=== PATIENT | male | born 1945 | race Caucasian/White ===

== ENCOUNTER 2016-07-18 19:26 | Observation (INO) | payer OTHER ==
--- NOTE | ~2016-07-18 | HP ---
History And Physical [facility] [address] [facility] [place]. [address] NAME: THADDEUS MILTON : 49 STATUS : DIS Beba PAT#: [id number] AGE: 71 ADM/REG DATE : 07/18/16 MR#: [id number] REPORT SERV DATE: 07/30/16 DICTATED BY: BENITO ALEJANDRE JR. DATE: 07/30/16 REPORT STATUS : Draft TRANSCRIBED BY: MCKENNA DATE: 07/30/16 DATE OF ADMISSION: 07/18/2016 REFERRING: Juan Carlos Renteria M.D. CHIEF COMPLAINT: Chest pain. HISTORY OF PRESENT ILLNESS: The patient is a 71-year-old, white male with a history of epicardial coronary artery disease, history of prior multiple cardiac catheterization procedures and PCI with known microvascular disease, normal LV systolic function, hypertensive heart disease, and diastolic dysfunction as well as morbid obesity and dyslipidemia, who presented with substernal chest pain and negative troponin to the ED, whereupon he was admitted for further evaluation. He was well until the day of admission, when he stepped out of his shower and became abruptly short of breath. He then complained of chest pain, and was emergently directed to the [facility] ED, whereupon further evaluation and admission occurred. Currently, his pain is rated at approximately 4/10 with a pleuritic component as well. REVIEW OF SYSTEMS: A 10-point review of systems otherwise is unremarkable. Prior to admission, he admits to have taken three sublingual nitroglycerin with a decrease in blood pressure. ALLERGIES: NONE KNOWN. MEDICATIONS: Prior to admission included: Aspirin, Effient, an GENI inhibitor, beta-alberto, nitrates, PPI, Carafate, and inhalers. PAST MEDICAL HISTORY: Notable for a history of epicardial coronary artery disease, hypertension, hypertensive heart disease, dyslipidemia, obstructive sleep apnea, gastroesophageal reflux, anxiety, arthritis. PAST SURGICAL HISTORY: Notable for prior PCI, cardiac catheterization, prior CAB, spinal surgery. SOCIAL HISTORY: Notable for absence of current tobacco or ethanol use. FAMILY HISTORY: Notable for multiple family members with heart disease. PHYSICAL EXAMINATION: VITAL SIGNS: Blood pressure is 133/62, pulse is 71, respirations 16, pulse oximetry is 97%. HEENT: Unremarkable. NECK: Supple without jugular venous distention. CARDIOVASCULAR SYSTEM: Regular rate and rhythm. No S4. No S3. PMI is laterally displaced. LUNGS: Notable for diffuse wheezes. Diminished breath sounds at the bases. ABDOMEN: Soft. Normoactive bowel sounds. History And Physical [address] [address] NAME: THADDEUS MILTON : 49 STATUS : DIS Beba PAT#: [id number] AGE: 71 ADM/REG DATE : 07/18/16 MR#: [id number] REPORT SERV DATE: 07/30/16 DICTATED BY: BENITO ALEJANDRE JR. DATE: 07/30/16 REPORT STATUS : Draft TRANSCRIBED BY: MCKENNA DATE: 07/30/16 EXTREMITIES: 1+ with no pedal edema. NEUROLOGIC: He is grossly intact. LABORATORY DATA: EKG is notable for H and H of 15.1 and 44.4, white count of 8.5, platelet count 180,000. Sodium 145, potassium 3.2, chloride 109, CO2 of 25, BUN 13, creatinine of 1, glucose 122. PT/INR of 1.1. Troponin less than 0.02 x3. Chest x-ray is otherwise unremarkable. EKG is notable for sinus rhythm, LVH, nonspecific ST changes. IMPRESSION: 1. Acute chest pain syndrome with history of coronary artery disease at elevated risk for event. 2. Unstable angina. 3. Reactive airway disease possibility. 4. Consider mast cell disease. RECOMMENDATIONS: 1. Nuclear stress. 2. Echo. 3. CT of the thorax. 4. Pulmonary consultation. 5. Further recommendations to follow. Single-dose steroids intravenous to be administered with nebulizer treatment, and re-initiation of Ranexa. LYNN/MCKENNA Benito Alejandre Jr., M.D. / [id number] CC: Bharathi Menard Jr., M.D.
[~2016-07-18 19:26] MED LIST: AMB10 PO; APRES50 PO; ASAB PO; BYSTOLIC10 MG PO; CALTRA600D PO; CLARIT10 PO; CRESTOR20 MG PO; ENDOCET1 TA1 PO; GLUCPH PO; HYDROCHLOROT12.5 MG PO; IMDUR60 PO; K-TABS10 MEQ PO; KAON-CL-1010 MEQ PO; NEUR300 PO; NITROSPRAY SL; NITROSTAT0.4 MG SL; OTC ACID REDUCER PO; PCET PO; PEP20 PO; PERCOCET1 TA2 PO; PLAVIX PO; SUCR PO; V5 PO; VENTOLIN HFA INH
[2016-07-18 20:15] LABS: BASOPHILS 0.2 %; BASOPHILS ABSOLUTE 0.02 10/3/uL (0.0-0.16); EOSINOPHILS ABSOLUTE 0.34 10/3/uL (0.0-0.53); ER CBC TAT 0 Hrs 00 Mins; IMMATURE GRANULOCYTES 0.2 %; IMMATURE GRANULOCYTES ABSOLUTE 0.02 10/3/uL (0.0-0.11); LYMPHOCYTES 24.2 %; LYMPHOCYTES ABSOLUTE 2.05 10/3/uL (0.67-4.30); MEAN CORPUSCULAR HEMOGLOB 30.4 pg (26.0-34.0); MEAN CORPUSCULAR VOLUME 89.3 fL (80-100); MEAN PLATELET VOLUME 12.3 fL (9.2-13.0); MONOCYTES 8.7 %; MONOCYTES ABSOLUTE 0.74 10/3/uL (0.21-1.20); NEUTROPHILS 62.7 %; NEUTROPHILS ABSOLUTE 5.31 10/3/uL (2.02-8.40); RBC DISTRIBUTION WIDTH 13.4 % (12.0-16.0); WHITE BLOOD CELLS 8.5 10/3/uL (4.5-10.5)
[2016-07-18 20:16] LABS: HEMATOCRIT 44.4 % (40.0-51.0); HEMOGLOBIN 15.1 g/dL (13.6-17.8); MANUAL DIFF NO %; PLATELET COUNT 180 10/3/uL (150-400); RED CELL COUNT 4.97 10/6/uL (4.7-6.1)
[2016-07-18 20:24] LABS: INTERNATIONAL NORMAL RATI 1.1 UNITS (-); PARTIAL THROMBO TIME 25.3 SEC (22.5-37.2); PROTIME (NOT ORD) 13.6 SEC (12.0-14.5)
[2016-07-18 20:32] LABS: BUN (BLOOD UREA NITROGEN) 13 MG/DL (6-23); CHEST PAIN PROFILE TAT 0 Hrs 00 Mins; CHLORIDE, SERUM 109 MMOL/L (96-112); CO2 (CARBON DIOXIDE) 25 MMOL/L (24-34); CREATININE 1.04 MG/DL (0.70-1.30); GFR AFRICAN AMERICAN 85 ML/MIN (>=60); GFR NON AFRICAN AMERICAN 73 ML/MIN (>=60); GLUCOSE, SERUM 122 MG/DL (60-99); POTASSIUM, SERUM 3.2 MMOL/L (3.5-5.3); SODIUM, SERUM 145 MMOL/L (135-148); TROPONIN I <0.02 NG/ML (<0.05)
[2016-07-18 20:33] LABS: CALCIUM, SERUM 9.9 MG/DL (8.5-10.4)
[2016-07-18] MEDS ORDERED: PLAVIX PO (22:01)
[2016-07-18] MEDS ORDERED: PCET PO (22:02)
[2016-07-18] MEDS ORDERED: CYMBALTA30 PO (22:02)
[2016-07-18] MEDS ORDERED: DIAM250B PO (22:03)
[2016-07-18] MEDS ORDERED: KLOR-CON M2020 MEQ PO (22:04)
[2016-07-18] MEDS ORDERED: COREG25 PO (22:05)
[2016-07-18] MEDS ORDERED: L40 PO (22:06)
[2016-07-18] MEDS ORDERED: IMDUR120 PO (22:06)
[2016-07-18] MEDS ORDERED: SINGULAIR1 PO (22:07)
[2016-07-18] MEDS ORDERED: APRES50 PO (22:07)
[2016-07-18] MEDS ORDERED: NEUR800 PO (22:08)
[2016-07-18] MEDS ORDERED: VENTOLIN HFA INH (22:08)
[2016-07-18] MEDS ORDERED: LIPITOR40 PO (22:08)
[2016-07-18] MEDS ORDERED: ASAB PO (22:11)
[2016-07-19 08:11] LABS: POTASSIUM, SERUM 3.4 MMOL/L (3.5-5.3)
[2016-07-19 11:52] LABS: TROPONIN I <0.02 NG/ML (<0.05)
[2016-07-19 16:16] LABS: POTASSIUM, SERUM 3.6 MMOL/L (3.5-5.3); TROPONIN I <0.02 NG/ML (<0.05)
[2016-07-20 04:17] LABS: BASOPHILS 0 %; EOSINOPHILS 0 %; HEMOGLOBIN 14.8 g/dL (13.6-17.8); IMMATURE GRANULOCYTES 0.4 %; IMMATURE GRANULOCYTES ABSOLUTE 0.07 10/3/uL (0.0-0.11); LYMPHOCYTES 9.9 %; LYMPHOCYTES ABSOLUTE 1.78 10/3/uL (0.67-4.30); MEAN CORPUS HGB CONC 33.6 g/dL (32.0-36.0); MEAN CORPUSCULAR HEMOGLOB 30.4 pg (26.0-34.0); MEAN CORPUSCULAR VOLUME 90.3 fL (80-100); MONOCYTES 2.3 %; MONOCYTES ABSOLUTE 0.41 10/3/uL (0.21-1.20); NEUTROPHILS 87.4 %; NEUTROPHILS ABSOLUTE 15.63 10/3/uL (2.02-8.40); PLATELET COUNT 170 10/3/uL (150-400); RBC DISTRIBUTION WIDTH 13.5 % (12.0-16.0); RED CELL COUNT 4.87 10/6/uL (4.7-6.1)
[2016-07-20 04:18] LABS: MANUAL DIFF NO %; WHITE BLOOD CELLS 17.9 10/3/uL (4.5-10.5)
[2016-07-20 04:32] LABS: CALCIUM, SERUM 10.5 MG/DL (8.5-10.4); CHLORIDE, SERUM 106 MMOL/L (96-112); CO2 (CARBON DIOXIDE) 26 MMOL/L (24-34); CREATININE 1.36 MG/DL (0.70-1.30); GFR AFRICAN AMERICAN 61 ML/MIN (>=60); GFR NON AFRICAN AMERICAN 53 ML/MIN (>=60); POTASSIUM, SERUM 3.9 MMOL/L (3.5-5.3); SODIUM, SERUM 141 MMOL/L (135-148)
[2016-07-20 04:35] LABS: BUN (BLOOD UREA NITROGEN) 20 MG/DL (6-23); GLUCOSE, SERUM 151 MG/DL (60-99)
[2016-07-20] MEDS ORDERED: CLARIT10 PO (09:13)
[2016-07-20] MEDS ORDERED: RANEXA1000 MG PO (09:14)
[2016-07-20] MEDS ORDERED: SUCR PO (09:15)
[2016-09-20] MEDS ORDERED: HYDROCHLOROT12.5 MG PO (11:35)
[2016-09-20] MEDS ORDERED: ZBETA10 PO (11:36)
[2016-09-20] MEDS ORDERED: FLOMAX4 PO (11:37)
[2016-09-20] MEDS ORDERED: NTG150 SL (11:38)
[2016-12-25] MEDS ORDERED: STOOL SOFTEN240 MG PO (10:43)
[2017-01-01] MEDS ORDERED: PERCOCET 7.5/321 TAB PO (10:40)
[2017-01-01] MEDS ORDERED: FLEX PO (10:40)
== END 2016-07-20 10:15 | disposition home or self-care (01) ==
LOC: ER 19:26 → CDU1 21:56
PROVIDERS: Emergency Medicine; Internal Medicine Cardiovascular Disease
DX: I25.110 Atherosclerotic heart disease of native coronary artery with unstable angina pectoris (principal); E66.01 Morbid (severe) obesity due to excess calories; I10 Essential (primary) hypertension; E78.5 Hyperlipidemia, unspecified; G47.33 Obstructive sleep apnea (adult) (pediatric); K21.9 Gastro-esophageal reflux disease without esophagitis; F41.9 Anxiety disorder, unspecified; M19.90 Unspecified osteoarthritis, unspecified site
CPT/HCPCS: 71020; 71275; 78452; 80048; 83735; 84132; 84484; 85025; 85610; 85730; 93005; 93017; 96374; 96375; 96376; 99285; A9270-GY; A9502; G0378; J0153; J2405; J2930; Q9967

== ENCOUNTER 2016-09-23 08:05 | Observation (INO) | payer OTHER ==
[2016-09-20 14:23] LABS: HEMATOCRIT 43.7 % (40.0-51.0); HEMOGLOBIN 15.1 g/dL (13.6-17.8)
[2016-09-20 14:35] LABS: CALCIUM, SERUM 10.5 MG/DL (8.5-10.4); CHLORIDE, SERUM 110 MMOL/L (96-112); CREATININE 1.17 MG/DL (0.70-1.30); GFR AFRICAN AMERICAN 73 ML/MIN (>=60); GFR NON AFRICAN AMERICAN 63 ML/MIN (>=60); GLUCOSE, SERUM 139 MG/DL (60-99); POTASSIUM, SERUM 3.4 MMOL/L (3.5-5.3); SODIUM, SERUM 144 MMOL/L (135-148)
[2016-09-20 14:37] LABS: BUN (BLOOD UREA NITROGEN) 15 MG/DL (6-23); CO2 (CARBON DIOXIDE) 31 MMOL/L (24-34)
--- NOTE | ~2016-09-23 | OP ---
Record Of Operation [facility] [address] [place]. [address] NAME: THADDEUS MILTON : 49 STATUS : ADM IN PAT#: [id number] AGE: 71 ADM/REG DATE : 09/23/16 MR#: [id number] REPORT SERV DATE: 09/23/16 DICTATED BY: KY CARMONA DATE: 09/23/16 REPORT STATUS : Draft TRANSCRIBED BY: MODL DATE: 09/23/16 DATE OF PROCEDURE: 09/23/2016 PREOPERATIVE DIAGNOSIS: C3-4, C4-5 disk disease and stenosis with spinal cord compression, progressive cervical myelopathy. POSTOPERATIVE DIAGNOSIS: C3-4, C4-5 disk disease and stenosis with spinal cord compression, progressive cervical myelopathy. PROCEDURES: 1. Anterior cervical diskectomy and fusion, C3-4, C4-5. 2. Use of allograft bone matrix. 3. Neuromonitoring. 4. Operative microscope. 5. Placement of Medtronic PEEK cage combined construct with screws into the vertebral bodies at C3 and C4 and again at C4 and C5. SURGEON: Ky Carmona DO. ANESTHESIA: General. ESTIMATED BLOOD LOSS: 10 mL. COMPLICATIONS: None. INDICATIONS: The patient is a pleasant 71-year-old with intractable neck and arm pain, progressive signs of myelopathy, failed conservative treatment, and after discussion of risks and benefits and neurologic decline, he elected to proceed with surgery. DESCRIPTION OF PROCEDURE: I identified the patient in the holding area. Consent was obtained. Went to the operating room. Underwent general anesthesia with endotracheal intubation. Prepped and draped in the usual sterile fashion. Operative safety pause was performed, then we proceeded with surgery. A transverse incision was made over the C4 level taken down through the platysma. Dissection carried out to the anterior aspect of the spine dissecting carefully through the previous scar tissue. Longus colli were elevated. Self- retaining retractors were placed. Denison pin was placed and the operative level verified with lateral fluoroscopic image. Distraction was applied across the C3-C4 level. Operative microscope was brought in. A knife was used to perform an annulotomy. Free disk material removed with pituitary. Anterior osteophytes were removed with Kerrison. Posterior osteophytes and uncinate processes taken down with a ashly bur. Foraminotomies performed with Kerrison. Endplates prepared with curettes, rasp, and a cutting bur. Trial spacers were implanted and then a Medtronic PEEK cage construct was placed at C3-C4 with allograft bone matrix. Screws were placed through the PEEK cage construct into the C3 and C4 level. The impactor was removed. This was repeated again at the C4-C5 level. Final AP and lateral images were obtained. Irrigation performed. Hemostasis achieved. Subplatysmal drain placed. Layered closure performed. Sterile dressings applied. The patient awoke and Record Of Operation [address] [address] NAME: THADDEUS MILTON : 49 STATUS : ADM IN [facility]#: [id number] AGE: 71 ADM/REG DATE : 09/23/16 MR#: [id number] REPORT SERV DATE: 09/23/16 DICTATED BY: KY CARMONA DATE: 09/23/16 REPORT STATUS : Draft TRANSCRIBED BY: MCKENNA DATE: 09/23/16 extubated and taken to the recovery room in stable condition. OPERATIVE FINDINGS: C3-4 and C4-5 severe disk disease and stenosis with spinal cord compression. No sustained neuromonitoring alerts. ROBERTO/MCKENNA Ky Carmona DO / [id number] CC: DO Juan Carlos Bernardo M.D.
--- NOTE | ~2016-09-23 | DS ---
Discharge Summary [facility] [address] [place]. [address] NAME: THADDEUS MILTON : 49 STATUS : DIS Beba PAT#: [id number] AGE: 71 ADM/REG DATE : 09/23/16 MR#: [id number] REPORT SERV DATE: 10/03/16 DICTATED BY: KY CARMONA DATE: 10/02/16 REPORT STATUS : Draft TRANSCRIBED BY: MCKENNA DATE: 10/02/16 Data Collection from hospitalization DISCHARGE DIAGNOSES: 1. C3-4, C4-5 disk disease and stenosis with spinal cord compression. 2. Progressive cervical myelopathy. 3. Hypertension. 4. Coronary artery disease. 5. Gastroesophageal reflux disease. 6. Dyslipidemia. 7. Obesity. 8. Sleep apnea. CONSULTATION: Dr. Efren Adams. PROCEDURES PERFORMED: Anterior cervical diskectomy and fusion, C3-4, C4-5; use of allograft bone matrix; neuromonitoring; operative microscope; placement of Medtronic PEEK cage combined construct with screws into the vertebral body at C3 and C4 and again at C4 and C5, 09/23/2016. PATHOLOGY: Vertebral bone and soft tissue, cervical spine-chronic reactive changes (no crystals). MEDICATIONS: Diamox 125 mg every morning, Ventolin two puffs via inhaler as needed, aspirin 81 mg every morning, Lipitor 40 mg at bedtime, Zebeta 10 mg daily, Plavix 75 mg daily, Flexeril 10 mg every eight hours as needed, Cymbalta 30 mg at bedtime, Lasix 40 mg daily, Neurontin 800 mg four times a day, hydrochlorothiazide 12.5 mg daily, Apresoline 50 mg three times a day, Imdur 120 mg twice a day, Claritin 10 mg daily, Singulair 10 mg at bedtime, nitroglycerin 0.4 mg sublingually as needed, Percocet 5/325 one tablet every six hours as needed, Klor-Con 40 mEq every morning, Ranexa 1000 mg twice a day, Carafate 1 g every six hours, Flomax 0.4 mg at bedtime. CONDITION AT DISCHARGE: Stable. DISPOSITION: The patient was discharged home on a mechanical soft diet with activities as instructed. He would follow up with me, 10/09/2016. HOSPITAL COURSE: This is a 71-year-old man, who presented with the chief complaint of neck pain and bilateral upper extremity pain and paresthesias. He also had trouble with balance and his legs giving out. The patient has C3-4, C4-5 disk disease and stenosis with spinal cord compression and progressive cervical myelopathy. Treatment options were discussed and it was elected to proceed with surgical intervention. He was admitted to the hospital at this time for further evaluation and treatment. Upon admission, he was taken to the operating room, where he underwent the above-mentioned procedure. He tolerated this well and there were no complications. Postoperatively, he was seen by Dr. Efren Adams regarding medical management. The patient was resting comfortably. He was hemodynamically stable. He did report some postop discomfort. Creatinine level was Discharge Summary [address] [address] NAME: THADDEUS MILTON : 49 STATUS : DIS Beba PAT#: [id number] AGE: 71 ADM/REG DATE : 09/23/16 MR#: [id number] REPORT SERV DATE: 10/03/16 DICTATED BY: KY CARMONA DATE: 10/02/16 REPORT STATUS : Draft TRANSCRIBED BY: MCKENNA DATE: 10/02/16 1.17. Glucose was 139. Blood pressure was controlled. His home blood pressure medications were continued. His home coronary artery disease medications were continued. Statin therapy continued for his dyslipidemia. On postop day one, he was evaluated by Physical Therapy. He had no new complaints. We encouraged him to use incentive spirometry. Lipitor was continued as well as Flomax. He was to use his CPAP at bedtime. Lisinopril had been added to his regimen. Over the next couple of days, he continued to progress. He was participating with Physical Therapy. JANA hose remained in place. Creatinine had risen to 1.85. On 09/26/2016, he was alert and cooperative. He had normal distal pulses. Creatinine level was 1.49. He was wanting to go home. He was ambulating in the halls. Discharge instructions were given. Due to his improved and stable condition, he was discharged home to be followed by home health care with the above-stated instructions. Information collected by: Ayesha Jiménez I submit the above information as my discharge summary. NICOLE/MCKENNA Ky Carmona DO / [id number] CC: DO Juan Carlos Bernardo M.D.
--- NOTE | ~2016-09-23 | PREOPHP ---
PreOp History and Physical [facility] [address] [place]. [address] NAME: THADDEUS MILTON : 49 STATUS : REG [facility]#: [id number] AGE: 71 ADM/REG DATE : 09/23/16 MR#: [id number] REPORT SERV DATE: 09/23/16 DICTATED BY: KY CARMONA DATE: 09/23/16 REPORT STATUS : Draft TRANSCRIBED BY: MCKENNA DATE: 09/23/16 CHIEF COMPLAINT: Neck pain and bilateral upper extremity pain and paresthesias, trouble with balance and legs giving out. REVIEW OF SYSTEMS: The patient denies chest pain, shortness of breath, and bowel or bladder changes. ALLERGIES: DENIED. HOME MEDICATIONS: Include Tylenol, acetazolamide, amlodipine, Asmanex, atorvastatin, bisoprolol, carvedilol, cefuroxime, Plavix, Crestor, Benadryl, duloxetine, famotidine, fluticasone, Fluzone, Lasix, gabapentin, hydralazine, hydrochlorothiazide, isosorbide, loratadine, Singulair, nifedipine, Percocet, pantoprazole, potassium, Prevnar, Proventil, Ranexa, sucralfate, tamsulosin. FAMILY HISTORY: Noncontributory. PAST MEDICAL HISTORY: Includes coronary artery disease with stents and sleep apnea with CPAP. PHYSICAL EXAMINATION: VITAL SIGNS: Height 5 feet 9 inches, weight 254, BMI 37.5. GENERAL: The patient is healthy appearing, in no acute distress. PSYCH: Alert and oriented x3. Normal mood and affect. Gait is antalgic and somewhat unsteady. VASCULAR: No extremity swelling. SPINE: Decreased cervical motion. Previous anterior incision appears well healed. HEART: Regular rate and rhythm. LUNGS: Clear to auscultation. ABDOMEN: Soft, nontender, nondistended with good bowel sounds. BREASTS: Deferred. RECTAL: Deferred. NEUROLOGIC: The patient does have some bilateral upper extremity weakness. IMAGING: I have reviewed the preoperative MRI scan. The patient has a previous fusion that was performed by Dr. Mak, C5-C7. He has disk disease and stenosis with spinal cord compression, C3-C4 and C4-C5. ASSESSMENT: Disk disease and stenosis with spinal cord compression, C3-C5; progressive signs of myelopathy and cervical radiculopathy; failed conservative treatment. PLAN: After discussion of risks and benefits and informed consent and progressive neurologic decline, the patient presents for surgical intervention. He is ready to proceed with surgery. PreOp History and Physical [address] [place]. [address] NAME: THADDEUS MILTON : 49 STATUS : [place] [facility] PAT#: [id number] AGE: 71 ADM/REG DATE : 09/23/16 MR#: [id number] REPORT SERV DATE: 09/23/16 DICTATED BY: KY CARMONA DATE: 09/23/16 REPORT STATUS : Draft TRANSCRIBED BY: MODL DATE: 09/23/16 ROBERTO/MCKENNA Ky Carmona DO / [id number] CC: DO Juan Carlos Bernardo M.D.
--- NOTE | ~2016-09-23 | CN ---
Consultation Report [facility] [address] [place]. [address] NAME: THADDEUS FAYE : 49 STATUS : ADM IN [facility]#: [id number] AGE: 71 ADM/REG DATE : 09/23/16 MR#: [id number] REPORT SERV DATE: 09/23/16 DICTATED BY: CARMEL PEÑA DATE: 09/23/16 REPORT STATUS : Draft TRANSCRIBED BY: MODL DATE: 09/23/16 CONSULTATION NOTE DATE OF CONSULTATION: 09/23/2016 REASON FOR CONSULTATION: Medical management. HISTORY OF PRESENTING ILLNESS: Mr. Faye is a 71-year-old male with a history of hypertension, coronary artery disease, status post CABG, GERD, dyslipidemia, and obesity, who presented as an outpatient for a surgical procedure. The patient was seen by Orthopedic Surgery for intractable neck and arm pain and progressive signs of myelopathy. The patient was initially tried on conservative therapy; however, the patient failed conservative therapy. The patient was therefore evaluated by Orthopedic Surgery and brought in today for an outpatient anterior cervical diskectomy and fusion of C3-C4 and C4-C5. The patient is status post procedure which he tolerated well. Hospitalist Medicine is being consulted to assist in medical management. At the time of my evaluation, the patient was resting comfortably. He was hemodynamically stable. Reported some mild discomfort secondary to recent surgery, however, no complaints at this time. PAST MEDICAL HISTORY: As noted in the HPI including 1. Hypertension. 2. Coronary artery disease, status post CABG. 3. GERD. 4. Dyslipidemia. 5. Obesity. PAST SURGICAL HISTORY: 1. CABG. 2. Anterior cervical diskectomy and fusion of C3-C4 and C4-C5. FAMILY HISTORY: Notable for multiple family members with heart disease. SOCIAL HISTORY: The patient denies any current tobacco or illicit or alcohol use. ALLERGIES: THE PATIENT HAS NO KNOWN DRUG ALLERGIES. HOME MEDICATIONS: 1. Acetazolamide 125 mg p.o. daily. 2. Aspirin 81 mg p.o. daily. 3. Atorvastatin 40 mg p.o. daily. 4. Bisoprolol 10 mg p.o. daily. 5. Plavix 75 mg p.o. daily. 6. Cymbalta 30 mg p.o. daily. 7. Furosemide 40 mg p.o. daily. Consultation Report [facility] [address] [place]. [address] NAME: THADDEUS FAYE : 49 STATUS : ADM IN PAT#: [id number] AGE: 71 ADM/REG DATE : 09/23/16 MR#: [id number] REPORT SERV DATE: 09/23/16 DICTATED BY: CARMEL PEÑA DATE: 09/23/16 REPORT STATUS : Draft TRANSCRIBED BY: MCKENNA DATE: 09/23/16 8. Gabapentin 800 mg p.o. q.6 hours. 9. Hydrochlorothiazide 12.5 mg p.o. daily. 10.Hydralazine 50 mg p.o. three times a day. 11.Isosorbide mononitrate 120 mg p.o. twice a day. 12.Loratadine 10 mg p.o. daily. 13.Singulair 10 mg p.o. daily. 14.Nitroglycerin 0.4 mg sublingual p.r.n. 15.Potassium chloride 40 mEq p.o. daily. 16.Ranolazine 1000 mg p.o. twice a day. 17.Sucralfate 1 g p.o. every 6 hours. 18.Tamsulosin 0.4 mg p.o. daily. PHYSICAL EXAMINATION: VITAL SIGNS: Blood pressure 119/68 with a pulse of 66, respirations 16, and O2 saturation 98% on 2 L nasal cannula. GENERAL: The patient is lying in bed, in no acute distress, wearing a neck collar. Appears stated age, in no acute distress. HEENT: Normocephalic and atraumatic. Extraocular motors intact. Moist oral mucosa. NECK: The patient is wearing a neck collar. Nontender to palpation. CARDIOVASCULAR: Regular rate and rhythm. S1, S2. No murmurs, rubs, or gallops. LUNGS: Anterior lung white with good air entry. The patient with normal respiratory effort with no increased work of breathing. Posterior lung white were not examined secondary to the patient's positioning, status post surgery. ABDOMEN: Obese. Protuberant with no pathological stray. Positive bowel sounds. Nontender. Nondistended. EXTREMITIES: No cyanosis, no clubbing, no edema. NEUROLOGIC: Alert and oriented x3. LABORATORY DATA: Hemoglobin 15.1, hematocrit 43.7. Sodium 144, potassium 3.4, chloride 110, bicarb 31, BUN 15, creatinine 1.17, GFR 63, and glucose 139. ASSESSMENT AND PLAN: 1. The patient is status post anterior diskectomy of C3-C4, C4-C5. Orthopedic Surgery is following. We will defer management to primary team. 2. Hypertension, controlled. Continue home medications. 3. Coronary artery disease, status post CABG, stable. We will continue home medications. The patient is currently on atorvastatin, Plavix, and beta alberto. 4. GERD stable. 5. Dyslipidemia, patient currently on statin therapy. We will continue current management. 6. Hypokalemia. We will repeat per protocol. 7. Obesity. BMI 37. We will monitor. Thank you for this consult. We will follow will follow the patient along with you. Consultation Report [address] [place]. [address] NAME: THADDEUS FAYE : 49 STATUS : ADM IN [facility]#: [id number] AGE: 71 ADM/REG DATE : 09/23/16 MR#: [id number] REPORT SERV DATE: 09/23/16 DICTATED BY: CARMEL PEÑA DATE: 09/23/16 REPORT STATUS : Draft TRANSCRIBED BY: MCKENNA DATE: 09/23/16 LENARD/MCKENNA Carmel Peña MD / [id number] CC: Ky Carmona, DO Juan Carlos Alvarado M.D.
[~2016-09-23 08:05] MED LIST changes: +COREG25 PO; +CYMBALTA30 PO; +DIAM250B PO; +FLOMAX4 PO; +IMDUR120 PO; +KLOR-CON M2020 MEQ PO; +L40 PO; +LIPITOR40 PO; +NEUR800 PO; +NTG150 SL; +RANEXA1000 MG PO; +SINGULAIR1 PO; +ZBETA10 PO
[2016-09-24 03:58] LABS: BASOPHILS 0.1 %; BASOPHILS ABSOLUTE 0.01 10/3/uL (0.0-0.16); EOSINOPHILS 0.1 %; EOSINOPHILS ABSOLUTE 0.01 10/3/uL (0.0-0.53); HEMOGLOBIN 14.7 g/dL (13.6-17.8); IMMATURE GRANULOCYTES 0.5 %; IMMATURE GRANULOCYTES ABSOLUTE 0.08 10/3/uL (0.0-0.11); LYMPHOCYTES 8.2 %; LYMPHOCYTES ABSOLUTE 1.33 10/3/uL (0.67-4.30); MEAN CORPUS HGB CONC 33.4 g/dL (32.0-36.0); MEAN CORPUSCULAR HEMOGLOB 30.8 pg (26.0-34.0); MEAN CORPUSCULAR VOLUME 92.2 fL (80-100); MEAN PLATELET VOLUME 12.5 fL (9.2-13.0); MONOCYTES 5.1 %; MONOCYTES ABSOLUTE 0.83 10/3/uL (0.21-1.20); PLATELET COUNT 140 10/3/uL (150-400); RBC DISTRIBUTION WIDTH 13.9 % (12.0-16.0); RED CELL COUNT 4.77 10/6/uL (4.7-6.1); WHITE BLOOD CELLS 16.2 10/3/uL (4.5-10.5)
[2016-09-24 04:04] LABS: MANUAL DIFF NO %
[2016-09-24 04:11] LABS: ALBUMIN 3.2 G/DL (3.5-5.0); ALKALINE PHOSPHATASE 100 U/L (45-117); BUN (BLOOD UREA NITROGEN) 10 MG/DL (6-23); CALCIUM, SERUM 10.3 MG/DL (8.5-10.4); CHLORIDE, SERUM 111 MMOL/L (96-112); CO2 (CARBON DIOXIDE) 26 MMOL/L (24-34); CREATININE 1.06 MG/DL (0.70-1.30); GFR AFRICAN AMERICAN 83 ML/MIN (>=60); GFR NON AFRICAN AMERICAN 71 ML/MIN (>=60); GLOBULIN 3.3 G/DL (2.5-4.1); GLUCOSE, SERUM 162 MG/DL (60-99); POTASSIUM, SERUM 4.7 MMOL/L (3.5-5.3); SGOT(AST) 20 U/L (5-40); SGPT(ALT) 34 U/L (5-65); SODIUM, SERUM 144 MMOL/L (135-148); TOTAL BILIRUBIN 0.3 MG/DL (0-1.2); TOTAL PROTEIN 6.5 G/DL (6.0-8.5)
[2016-09-25 04:16] LABS: BASOPHILS 0.1 %; BASOPHILS ABSOLUTE 0.01 10/3/uL (0.0-0.16); EOSINOPHILS 1.5 %; EOSINOPHILS ABSOLUTE 0.18 10/3/uL (0.0-0.53); HEMATOCRIT 41.4 % (40.0-51.0); HEMOGLOBIN 13.5 g/dL (13.6-17.8); IMMATURE GRANULOCYTES 0.3 %; IMMATURE GRANULOCYTES ABSOLUTE 0.03 10/3/uL (0.0-0.11); LYMPHOCYTES 14.6 %; LYMPHOCYTES ABSOLUTE 1.72 10/3/uL (0.67-4.30); MANUAL DIFF NO %; MEAN CORPUS HGB CONC 32.6 g/dL (32.0-36.0); MEAN CORPUSCULAR HEMOGLOB 30.6 pg (26.0-34.0); MEAN CORPUSCULAR VOLUME 93.9 fL (80-100); MEAN PLATELET VOLUME 11.9 fL (9.2-13.0); MONOCYTES 8.8 %; MONOCYTES ABSOLUTE 1.04 10/3/uL (0.21-1.20); NEUTROPHILS 74.7 %; NEUTROPHILS ABSOLUTE 8.79 10/3/uL (2.02-8.40); PLATELET COUNT 152 10/3/uL (150-400); RBC DISTRIBUTION WIDTH 14.4 % (12.0-16.0); RED CELL COUNT 4.41 10/6/uL (4.7-6.1); WHITE BLOOD CELLS 11.8 10/3/uL (4.5-10.5)
[2016-09-25 04:30] LABS: BUN (BLOOD UREA NITROGEN) 14 MG/DL (6-23); CALCIUM, SERUM 10.5 MG/DL (8.5-10.4); CHLORIDE, SERUM 108 MMOL/L (96-112); CO2 (CARBON DIOXIDE) 29 MMOL/L (24-34); CREATININE 1.85 MG/DL (0.70-1.30); GFR AFRICAN AMERICAN 42 ML/MIN (>=60); GFR NON AFRICAN AMERICAN 36 ML/MIN (>=60); GLUCOSE, SERUM 132 MG/DL (60-99); POTASSIUM, SERUM 4.3 MMOL/L (3.5-5.3); SODIUM, SERUM 145 MMOL/L (135-148)
[2016-09-26 04:07] LABS: BASOPHILS 0.2 %; BASOPHILS ABSOLUTE 0.02 10/3/uL (0.0-0.16); EOSINOPHILS 2.9 %; EOSINOPHILS ABSOLUTE 0.27 10/3/uL (0.0-0.53); HEMATOCRIT 39.8 % (40.0-51.0); IMMATURE GRANULOCYTES 0.3 %; IMMATURE GRANULOCYTES ABSOLUTE 0.03 10/3/uL (0.0-0.11); LYMPHOCYTES ABSOLUTE 1.49 10/3/uL (0.67-4.30); MEAN CORPUS HGB CONC 32.7 g/dL (32.0-36.0); MEAN CORPUSCULAR HEMOGLOB 30.7 pg (26.0-34.0); MEAN CORPUSCULAR VOLUME 93.9 fL (80-100); MEAN PLATELET VOLUME 12.1 fL (9.2-13.0); MONOCYTES ABSOLUTE 1.03 10/3/uL (0.21-1.20); NEUTROPHILS 69.6 %; NEUTROPHILS ABSOLUTE 6.49 10/3/uL (2.02-8.40); PLATELET COUNT 160 10/3/uL (150-400); RBC DISTRIBUTION WIDTH 14.3 % (12.0-16.0); RED CELL COUNT 4.24 10/6/uL (4.7-6.1); WHITE BLOOD CELLS 9.3 10/3/uL (4.5-10.5)
[2016-09-26 04:08] LABS: MANUAL DIFF NO %
[2016-09-26 04:27] LABS: BUN (BLOOD UREA NITROGEN) 15 MG/DL (6-23); CHLORIDE, SERUM 110 MMOL/L (96-112); CO2 (CARBON DIOXIDE) 28 MMOL/L (24-34); CREATININE 1.49 MG/DL (0.70-1.30); GFR AFRICAN AMERICAN 55 ML/MIN (>=60); GFR NON AFRICAN AMERICAN 47 ML/MIN (>=60); GLUCOSE, SERUM 120 MG/DL (60-99); POTASSIUM, SERUM 3.9 MMOL/L (3.5-5.3); SODIUM, SERUM 144 MMOL/L (135-148)
[2016-09-26] MEDS ORDERED: FLEX PO (11:39)
[2016-12-25] MEDS ORDERED: STOOL SOFTEN240 MG PO (10:43)
[2017-01-01] MEDS ORDERED: PERCOCET 7.5/321 TAB PO (10:40)
[2017-01-01] MEDS ORDERED: FLEX PO (10:40)
== END 2016-09-26 12:37 | disposition home health service (06) ==
LOC: SDC 08:05 → 3SO 13:32
PROVIDERS: Nurse Practitioner; Orthopaedic Surgery
PROC: 0RG20K0 Fusion of 2 or more Cervical Vertebral Joints with Nonautologous Tissue Substitute, Anterior Approach, Anterior Column, Open Approach (ICD-10-PCS; 2016-09-23)
PROC: 0RG20J0 Fusion of 2 or more Cervical Vertebral Joints with Synthetic Substitute, Anterior Approach, Anterior Column, Open Approach (ICD-10-PCS; 2016-09-23)
PROC: 0RG20A0 Fusion of 2 or more Cervical Vertebral Joints with Interbody Fusion Device, Anterior Approach, Anterior Column, Open Approach (ICD-10-PCS; principal; 2016-09-23 09:00)
DX: M50.021 Cervical disc disorder at C4-C5 level with myelopathy (principal); M50.01 Cervical disc disorder with myelopathy, high cervical region; M48.02 Spinal stenosis, cervical region; I25.10 Atherosclerotic heart disease of native coronary artery without angina pectoris; K21.9 Gastro-esophageal reflux disease without esophagitis; E66.9 Obesity, unspecified; I10 Essential (primary) hypertension; E87.6 Hypokalemia; G47.33 Obstructive sleep apnea (adult) (pediatric); Z99.81 Dependence on supplemental oxygen; Z79.899 Other long term (current) drug therapy; Z95.1 Presence of aortocoronary bypass graft; Z82.49 Family history of ischemic heart disease and other diseases of the circulatory system; Z79.82 Long term (current) use of aspirin; Z79.02 Long term (current) use of antithrombotics/antiplatelets; Z68.37 Body mass index [BMI] 37.0-37.9, adult; Z99.89 Dependence on other enabling machines and devices; Z79.891 Long term (current) use of opiate analgesic
CPT/HCPCS: 20931; 22551; 22552; 22853 ×2; C1713; 80048; 80053; 82962; 85014; 85018; 85025; 87641; 88304; 88311; 93005; 96374; 96376; 97110-GP; 97116-GP; 97162-GP; A9270-GY; G0378; J0690; J2250; J2270; J2370; J2405; J2710; J3010